=== PATIENT | female | born 1995 ===

== ENCOUNTER 2023-09-06 13:14 | Emergency (ER) | payer SELFPAY ==
[2023-09-06 13:18] VITALS: BP 115/48; PULSE 97; RESP 18; TEMP 35.8; O2SAT 98
[2023-09-06 13:31] VITALS: BP 115/48; PULSE 97; RESP 18; TEMP 35.8; O2SAT 98
[2023-09-06] MEDS: Amoxicillin 875 MG TAB PO (14:15)
[2023-09-06 14:32] LABS: COVID-19 PCR Negative (Negative); Influenza A PCR Negative (Negative); Influenza B PCR Negative (Negative); RSV PCR Negative (Negative); Source Nasopharynx
--- NOTE | 2023-09-06 14:46 | ED.GENADUL_ITS ---
Discharge Plan Disposition Patient Disposition: Home Condition: Stable Discharge Details Clinical Impression: Acute left otitis media ED Provider: Raj Eller Home Meds and New Rx's Prescriptions: New amoxicillin 875 mg tablet 875 mg PO BID Qty: 13 0RF Discontinued levothyroxine 200 mcg capsule 225 mcg PO DAILY Discharge Instructions Instructions: Ear Infection (ED) Additional Instructions: Please take full course of antibiotic as prescribed. Please take ibuprofen over the counter. Take 600mg by mouth every 6 hours as needed for pain. Please follow-up with a primary care physician. HPI General Mode of arrival: ambulatory . Date/Time Provider Initiated Documentation: 09/06/23 13:37 . Limitations to Documentation: no limitations . Information obtained by: patient . HPI Narrative: 28-year-old female presents with chief complaint of respiratory illness. Patient notes scratchy sore throat and hoarseness in her voice over the past 2 days. She developed left ear pain yesterday that has persisted. She has intermittent cough. Associated subjective fever. Patient also notes she is yet to establish primary care physician in the area and has been out without her levothyroxine for the past 9 months or so. She states she was on this medication consistently for years. She does feel fatigued. Related Data Home Medications Medication Instructions Recorded Confirmed amoxicillin 875 mg tablet 875 mg PO BID #13 tabs 09/06/23 Previous Rx's Medication Instructions Recorded amoxicillin 875 mg tablet 875 mg PO BID #13 tabs 09/06/23 Allergies Allergy/AdvReac Type Severity Reaction Status Date / Time fentanyl AdvReac Itching Verified 09/06/23 13:34 General Stated Complaint: EarProblem ERNESTO: 4 Review of Systems All systems reviewed & are unremarkable except as noted in HPI and below Constitutional Constitutional: Reports fever(s) ENT Ears, Nose, Mouth, and Throat: Reports as per HPI Cardiovascular Cardiovascular: Denies dyspnea Respiratory Respiratory: Reports as per HPI and Denies dyspnea Exam Const General: cooperative and no acute distress HENMT Ears: TM normal on the right, EAC's normal, no periauricular adenopathy and TM abnormal (left) bulging and erythematous Mouth: moist mucous membranes Throat: uvula midline and posterior oropharynx abnormal erythema; no edema and no exudates Eyes Conjunctivae: normal conjunctivae Sclera: normal sclerae Neck Neck: trachea midline and supple Resp Auscultation: clear to auscultation bilaterally, no rales, no rhonchi and no wheezes Cardio Rate: regular rate and not tachycardic Rhythm: regular rhythm Neuro General: patient alert, patient awake and tone normal Extrem General: no edema Course Vital Signs Vital signs: Vital Signs Temperature 35.8 C L 09/06/23 13:18 Pulse 97 H 09/06/23 13:18 Respiratory Rate 18 09/06/23 13:18 Blood Pressure 115/48 L 09/06/23 13:18 Pulse Oximetry 98 09/06/23 13:18 Temperature 35.8 C L 09/06/23 13:31 Temperature Source Skin 09/06/23 13:18 Pulse 97 H 09/06/23 13:31 Respiratory Rate 18 09/06/23 13:31 Respiratory Effort Normal 09/06/23 13:21 Blood Pressure 115/48 L 09/06/23 13:31 Blood Pressure Position Sitting 09/06/23 13:31 Pulse Oximetry 98 09/06/23 13:31 Oxygen Delivery Method Room Air 09/06/23 13:31 Oxygen Flow Rate 0 09/06/23 13:31 Pain Level 0 09/06/23 13:31 Lab/Test Results Lab/Test Results: Laboratory Tests Range/Units 09/06/23 13:50 COVID-19 Source Nasopharynx SARS-CoV-2 (PCR) (Negative) Negative Influenza Type A (PCR) (Negative) Negative Influenza Type B (PCR) (Negative) Negative RSV (PCR) (Negative) Negative Medical Decision Making 1453 --28-year-old female here with severe left ear pain and associated respiratory symptoms with subjective fever over the past couple days. Patient has otitis media on examination. Plan to initiate treatment with amoxicillin. Patient has a history of hypothyroidism and has been out of her levothyroxine for approximately 9 months. I will ask care management to assist in arranging primary care follow-up. Plan to check TSH and free T4 today and if indicated, initiate treatment with levothyroxine as previously prescribed. -- TSH was normal. I will not reinitiate Synthroid at this time. Initial dose of amoxicillin was provided here in the emergency department and prescription sent to pharmacy. Quality:SDOH Health Related Social Needs: No Data to Display PFSH All Active Problems (Updated 09/06/23 @ 15:00 by Raj Eller MD) Acute left otitis media (Acute) Medical History (Updated 09/06/23 @ 15:00 by Raj Eller MD) Hypothyroidism Social History Smoking/Tobacco Use Status: Never Smoking risk assessment performed?: Yes Alcohol Intake: never Additional Social history: unable to assess privately
[2023-09-06 14:52] LABS: TSH (W/Ref FT4) 1.87 uIU/mL (0.36-3.74)
--- NOTE | 2023-09-06 15:03 | NUR.NOTE ---
Patient needs PCP to establish care Hypothyroidism Femi, ED Nursing Note:
[2023-09-06 15:35] VITALS: BP 115/48; PULSE 97; RESP 18; TEMP 35.8; O2SAT 98
== END 2023-09-06 15:35 | disposition home or self-care (01) ==
LOC: ER 15:22
PROVIDERS: Emergency Provider Student in an Organized Health Care Education/Training Program
DX: H92.02 Otalgia, left ear (principal); H66.92 Otitis media, unspecified, left ear; R07.0 Pain in throat; E03.9 Hypothyroidism, unspecified
CPT/HCPCS: 81025; 87637; 99283; 84443